=== PATIENT | female | born 1995 | race African-American/Black ===

== ENCOUNTER 2019-09-09 23:37 | Emergency (ER) | payer MEDICAID ==
[~2019-09-09] VITALS: Ht 175.3 cm; Wt 82.0 kg
[2019-09-10] MEDS ORDERED: ACETAMINOPHEN 325MG TABLET PO ONE (00:45)
[2019-09-10 01:27] VITALS: BP 128/65
== END 2019-09-10 01:28 | disposition home or self-care (01) ==
LOC: ER 23:37
DX: M94.0 Chondrocostal junction syndrome [Tietze] (principal); J45.909 Unspecified asthma, uncomplicated
CPT/HCPCS: 93005; 99283

== ENCOUNTER 2023-10-26 11:33 | Emergency (ER) | payer BC, MEDICAID ==
[~2023-10-26] VITALS: Ht 170.2 cm; Wt 70.0 kg
[2023-10-26 11:35] VITALS: BP 132/81; PULSE 83; RESP 16; TEMP 98; O2SAT 98
== END 2023-10-26 13:48 | disposition home or self-care (01) ==
LOC: ER 13:47
DX: N64.89 Other specified disorders of breast (principal); J45.909 Unspecified asthma, uncomplicated
CPT/HCPCS: 99283